=== PATIENT | male | born 1945 | race Caucasian/White ===

== ENCOUNTER → 2020-06-19 | Outpatient (CLI) | payer OTHER ==
[~2020-06-19] MED LIST: ALBUTEROL SULFATE 0.083% 2.5 MG/3 ML INH IH ONE
== END | disposition home or self-care (01) ==
LOC: RESP 12:58
PROVIDERS: ATTEND Internal Medicine Cardiovascular Disease
DX: R06.00 Dyspnea, unspecified (principal)
CPT/HCPCS: 94060; 94727; 94729

== ENCOUNTER → 2020-08-14 | Outpatient (CLI) | payer OTHER ==
[2020-08-14 15:00] LABS: MAGNESIUM 1.8 mg/dL (1.80-2.40); PHOSPHORUS 3.9 mg/dL (2.5-4.9)
== END | disposition home or self-care (01) ==
LOC: RAH 14:05
PROVIDERS: ATTEND Internal Medicine Pulmonary Disease
DX: J84.114 Acute interstitial pneumonitis (principal); I50.20 Unspecified systolic (congestive) heart failure; J84.10 Pulmonary fibrosis, unspecified; Z95.0 Presence of cardiac pacemaker; M51.34 Other intervertebral disc degeneration, thoracic region; N20.0 Calculus of kidney
CPT/HCPCS: 36415; 71250; 83735; 83880; 84100

== ENCOUNTER → 2020-10-04 | Outpatient (CLI) | payer OTHER | END | disposition home or self-care (01) | LOC: RAH 12:32 | PROVIDERS: ATTEND Internal Medicine Cardiovascular Disease | DX: I87.2 Venous insufficiency (chronic) (peripheral) (principal) | CPT/HCPCS: 93970 ==

== ENCOUNTER → 2020-11-06 | Outpatient (CLI) | payer OTHER | END | disposition home or self-care (01) | LOC: SHCH 13:03 | PROVIDERS: ATTEND Internal Medicine Cardiovascular Disease | DX: I25.5 Ischemic cardiomyopathy (principal); R22.43 Localized swelling, mass and lump, lower limb, bilateral | CPT/HCPCS: 93306; 93356 ==

== ENCOUNTER 2021-02-24 07:02 | Observation (INO) | payer OTHER ==
[2021-02-20 08:59] VITALS: BP 112/66
[2021-02-20 11:39] LABS: BASOPHILS % (AUTO) 0.9 % (0.0-5.0); EOSINOPHILS % (AUTO) 2.7 % (0.0-8.0); HEMATOCRIT 36.5 % (42-54); LYMPHOCYTES % (AUTO) 25.8 % (21.0-51.0); MEAN CORPUSCULAR HEMOGLOBIN 29.9 pg (27.0-33.0); MEAN CORPUSCULAR HGB CONC 32.1 g/dL (32.0-36.0); MEAN CORPUSCULAR VOLUME 93.4 fL (79-99); MONOCYTES % (AUTO) 8.1 % (3.0-13.0); PLATELET COUNT (AUTO) 150 K/uL (130-400); RED BLOOD CELL COUNT(AUTO) 3.91 MIL/uL (4.50-6.20); WHITE BLOOD COUNT (AUTO) 5.8 K/uL (4.8-10.8)
[2021-02-20 11:50] LABS: INR 0.99 (0.85-1.15); PROTHROMBIN TIME 10.8 SEC (9.6-11.6)
[2021-02-20 11:51] LABS: PARTIAL THROMBOPLASTIN TIME 25.9 SEC (26.3-35.5)
[2021-02-20 12:02] LABS: CREATININE 1.4 mg/dL (0.5-1.5)
[~2021-02-24] VITALS: Ht 172.7 cm; Wt 102.1 kg
[2021-02-24] VITALS (15 sets, daily range): BP systolic 100–158; BP diastolic 54–105
[~2021-02-24 07:02] MED LIST changes: +AEC81 PO; -ALBUTEROL SULFATE 0.083% 2.5 MG/3 ML INH IH ONE; +ATOR40TA71 PO; +CARV6.25 PO; +CEFAZOLIN SODIUM 1 GM VIAL IVP SCH; +CETI10TA57 PO; +CHOL2000 PO; +DiphenhydrAMINE HCL 50 MG/ML VIAL IV SCH; +LINA5TAB PO; +MONT-39 PO; +MVIT PO; +NIZO215C TP; +ROPI1TAB13 PO; +SOLU-MEDROL 125MG VIAL IVP SCH; +SPIR25TA6 PO; +TORS20TA4 PO
[2021-02-24] MEDS ORDERED: 0.9%NACL 1000ML 1,000 ML IV ONE (08:18)
[2021-02-24] MEDS ORDERED: IODIXANOL 320 MG/ML 100 ML VIAL ONE (13:03)
[2021-02-24] MEDS ORDERED: BUPIVACAINE/PF 0.25% 30ML VIAL IJ ONE (13:03)
[2021-02-24] MEDS ORDERED: LIDOCAINE HCL 1% MDV 50ML VIAL ONE (13:04)
[2021-02-24] MEDS ORDERED: MEPERIDINE-PF 25 MG/ML SYG ONE ×3 (13:04→14:21)
[2021-02-24] MEDS ORDERED: MIDAZOLAM HCL 1 MG/ML 2ML VIAL ONE ×3 (13:04→14:22)
[2021-02-24] MEDS ORDERED: VANCOMYCIN 1G/250ML KIT 250 ML IV ONE (14:11)
[2021-02-24] MEDS ORDERED: ACETAMINOPHEN WITH CODEINE 1 TAB TAB PO PRN (17:30)
[2021-02-24] MEDS ORDERED: ACETAMINOPHEN 325 MG TAB PO PRN ×2 (19:30)
[2021-02-24] MEDS ORDERED: ONDANSETRON 4MG INJ IV PRN (19:30)
[2021-02-24] MEDS: CARVEDILOL 6.25 MG TABLET PO SCH (20:55)
[2021-02-24] MEDS: DOXYCYCLINE HYCLATE 100 MG TABLET PO SCH (20:55)
[2021-02-24] MEDS ORDERED: ROPINIROLE HCL 1 MG TABLET PO SCH (21:00)
[2021-02-24] MEDS ORDERED: ATORVASTATIN 40 MG TABLET PO SCH (21:00)
[2021-02-24] MEDS: INSULIN HUMULIN R 100 UNIT/ML 3ML SQ SCH (21:02)
[2021-02-25 04:00] VITALS: BP 98/60
[2021-02-25] MEDS: INSULIN HUMULIN R 100 UNIT/ML 3ML SQ SCH ×2 (05:04→11:59)
[2021-02-25 05:21] LABS: BASOPHILS % (AUTO) 0.1 % (0.0-5.0); EOSINOPHILS % (AUTO) 1.9 % (0.0-8.0); HEMATOCRIT 35.5 % (42-54); MEAN CORPUSCULAR HEMOGLOBIN 29.7 pg (27.0-33.0); MEAN CORPUSCULAR HGB CONC 33.2 g/dL (32.0-36.0); MEAN CORPUSCULAR VOLUME 89.4 fL (79-99); NEUTROPHILS % (AUTO) 84.7 % (40.0-77.0); PLATELET COUNT (AUTO) 160 K/uL (130-400); RED BLOOD CELL COUNT(AUTO) 3.97 MIL/uL (4.50-6.20); RED CELL DISTRIBUTION WIDTH 12.5 % (11.0-15.5); WHITE BLOOD COUNT (AUTO) 8.6 K/uL (4.8-10.8)
[2021-02-25 05:29] LABS: HEMOGLOBIN A1C 11.1 % (4.0-6.0)
[2021-02-25 05:34] LABS: CREATININE 1.9 mg/dL (0.5-1.5)
[2021-02-25 07:20] VITALS: BP 113/68
[2021-02-25] MEDS ORDERED: MULTIVITAMIN TABLET PO SCH (09:00)
[2021-02-25] MEDS ORDERED: LINAGLIPTIN 5 MG TABLET PO SCH (09:00)
[2021-02-25] MEDS ORDERED: ASPIRIN 81 MG EC TAB PO SCH (09:00)
[2021-02-25] MEDS ORDERED: KETOCONAZOLE 15 GM CREAM.GM. TP SCH (09:00)
[2021-02-25] MEDS ORDERED: **HM**(Cholecalciferol (Vitamin D3) (Vitamin D3) 50 MCG) PO SCH (09:00)
[2021-02-25] MEDS ORDERED: CETIRIZINE HCL 5 MG TABLET PO SCH (09:00)
[2021-02-25] MEDS ORDERED: TORSEMIDE 20 MG TAB PO SCH (09:00)
[2021-02-25] MEDS ORDERED: SPIRONOLACTONE 25 MG TAB PO SCH (09:00)
[2021-02-25] MEDS ORDERED: MONTELUKAST SODIUM 10 MG TAB PO SCH (09:00)
[2021-02-25] MEDS: CARVEDILOL 6.25 MG TABLET PO SCH (10:23)
[2021-02-25] MEDS: DOXYCYCLINE HYCLATE 100 MG TABLET PO SCH (10:24)
[2021-02-25 11:20] VITALS: BP 106/61
[2021-02-25 14:05] LABS: CREATININE 1.9 mg/dL (0.5-1.5); POTASSIUM 4.3 mmol/L (3.5-5.1)
[2021-02-25 15:20] VITALS: BP 107/64
== END 2021-02-25 16:10 | disposition home or self-care (01) ==
LOC: DAH 07:02 → DAHIP 07:03 → INTOOBSV 07:03 → DAH 17:13 → 4BH 19:38
PROVIDERS: ADMIT Internal Medicine; ATTEND Internal Medicine
DX: I44.2 Atrioventricular block, complete (principal); I11.0 Hypertensive heart disease with heart failure; I50.22 Chronic systolic (congestive) heart failure; I25.5 Ischemic cardiomyopathy; I25.10 Atherosclerotic heart disease of native coronary artery without angina pectoris; E11.9 Type 2 diabetes mellitus without complications; G25.81 Restless legs syndrome; I34.0 Nonrheumatic mitral (valve) insufficiency; E78.5 Hyperlipidemia, unspecified; T82.897A Other specified complication of cardiac prosthetic devices, implants and grafts, initial encounter; Z95.1 Presence of aortocoronary bypass graft; Z95.810 Presence of automatic (implantable) cardiac defibrillator; Z95.2 Presence of prosthetic heart valve; Z79.899 Other long term (current) drug therapy; Z98.890 Other specified postprocedural states; Z90.49 Acquired absence of other specified parts of digestive tract; Z79.82 Long term (current) use of aspirin; Z95.5 Presence of coronary angioplasty implant and graft
CPT/HCPCS: 33225; 33264; 36415 ×2; 71046; 80048 ×3; 80061; 82948 ×9; 83036; 85025 ×2; 85610; 85730; 93005; 96374; A4215; A4216; A4221; A4222; A4223 ×3; A4606; A4663; C1769 ×3; C1882; C1900; G0378 ×23; J0690; J1200; J2175 ×3; J2250 ×3; J2930; J3370; J3490 ×2; J7030; Q9967; 99156; 99157

== ENCOUNTER → 2021-04-22 | Outpatient (CLI) | payer OTHER ==
[~2021-04-22] MED LIST changes: -CEFAZOLIN SODIUM 1 GM VIAL IVP SCH; -DiphenhydrAMINE HCL 50 MG/ML VIAL IV SCH; +REGADENOSON 0.4 MG/5 ML PF SYG IVP SCH; -SOLU-MEDROL 125MG VIAL IVP SCH
== END | disposition home or self-care (01) ==
LOC: SHCH 09:17
PROVIDERS: ATTEND Internal Medicine Cardiovascular Disease
DX: I51.7 Cardiomegaly (principal); I51.0 Cardiac septal defect, acquired; I50.22 Chronic systolic (congestive) heart failure; Z95.0 Presence of cardiac pacemaker
CPT/HCPCS: 78452; 93017; 96374; A9500 ×2; J2785